=== PATIENT | male | born 1950 | race Caucasian/White ===

== ENCOUNTER 2022-05-27 14:16 | Outpatient (CLI) | payer OTHER, SELFPAY ==
--- NOTE | 2022-05-27 14:29 | USCV_ITS ---
Bill Mcdonald Age: 71 Gender: M : 1950 Exam Date: 05/27/2022 14:36 Ordering Phys: George Sloan DO Technologist: Ethan Bojorquez Exam Location: [facility] Indication: screening HISTORY: Diameter (cm) AP x Transverse x Length Velocity (cm/s) Waveform Prox Aorta: 1.56 x 2.12 x 84.60 Mid Aorta: 1.54 x 1.62 x 97.50 Distal Aorta: 1.35 x 1.53 x 64.50 Right Iliac Prox: 0.84 x 1.31 x 97.90 Left Iliac Prox: 0.89 x 1.06 x 81.80 Stent Prox Landing x x Aneurysmal Sac Max x x Lt Lat Sac Dim Rt Lat Sac Dim Stent Dist Landing x x Right Iliac Stent x x Left Iliac Stent x x Right Renal Art Left Renal Art FINDINGS: CONCLUSIONS No evidence of abdominal aortic or bilateral iliac aneurysm. Jeremy García MD (Electronically Signed) Final Date: 27 May 2022 16:11 S
--- NOTE | 2022-05-27 14:29 | USCV_ITS ---
McdonaldBill del iro Age: 71 Gender: M : 1950 Exam Date: 05/27/2022 14:54 Ordering Phys: George Sloan DO Technologist: Ethan Bojorquez Exam Location: [facility] [place] Indication: Dizziness Risk Factors: Previous Vascular Surgery: Right Brachial BP: / Left Brachial BP: / Right Left Velocity (cm/s) Spectral Plaque Velocity (cm/s) Spectral Plaque Syst/Diast Broadening Syst/Diast Broadening 86.20/ 21.00 Prox CCA 79.50 / 19.10 69.90/ 20.20 Mid CCA 72.30 / 20.40 65.30/ 20.20 Distal CCA 50.80 / 15.30 58.70/ 17.60 Prox ICA 57.20 / 17.70 83.90/ 31.80 Mid ICA 84.10 / 30.90 75.20/ 25.60 Distal ICA 111.10/ 41.00 113.60 ECA 84.10 0.97 ICA/CCA 1.40 Antegrade Vertebral Antegrade 40.60/ 11.70 cm/s 53.90/ 13.90 cm/s Tri Subclavian Tri 119.6 60.90 0 CONCLUSIONS Right ICA stenosis <50%. Mild atheromatous plaque right carotid bulb/ICA. Left ICA stenosis <50%. Mild atheromatous plaque left carotid bulb/ICA. Normal antegrade Doppler flow noted in the left vertebral artery. Normal antegrade Doppler flow noted in the right vertebral artery. Jeremy García MD (Electronically Signed) Final Date: 27 May 2022 16:09 S
== END 2022-05-27 14:17 | disposition home or self-care (01) ==
LOC: RAD 14:17
PROVIDERS: PCP Emergency Medicine Emergency Medical Services; Visit Provider Emergency Medicine Emergency Medical Services
DX: Z13.6 Encounter for screening for cardiovascular disorders (principal); R42 Dizziness and giddiness; I65.23 Occlusion and stenosis of bilateral carotid arteries
CPT/HCPCS: 76706; 93880

== ENCOUNTER 2022-06-01 12:34 | Outpatient (CLI) | payer OTHER, SELFPAY ==
--- NOTE | 2022-06-01 12:42 | MR_ITS ---
WS: [id number] MRI BRAIN WITH AND WITHOUT CONTRAST HISTORY: DIZZINESS WHEN SITTING COMPARISON: None available. TECHNIQUE: Multiplanar imaging performed through the brain with MultiHance 20 ml's IV. No acute infarcts are seen. De La Cruz-white matter differentiation is well preserved. There are a few very minimal scattered T2 and FLAIR signal hyperintensities from small vessel ischemic disease. Very mini mal atrophy. No susceptibility artifacts or prior lacunar infarcts. Ventricles and extra-axial spaces are normal. Clivus and pituitary gland are normal. Visualized posterior fossa and brainstem are also normal. Postcontrast images are negative for masses or vascular malformations. Dural venous sinuses are normal. Paranasal sinuses: Well aerated with no significant disease. Mastoid air cells: Normal. Calvarium and scalp: Normal. MR/MR head wo/w con [id number] IMPRESSION: 1. No acute infarct or mass. 2. Very mild atrophy and small vessel ischemic disease. 3. No vascular malformation or pituitary abnormality. Negative posterior fossa .
[2022-06-01] MEDS: gadobenate dimeglumine 20 mL vial IV (14:00)
== END 2022-06-01 12:35 | disposition home or self-care (01) ==
PROVIDERS: PCP Emergency Medicine Emergency Medical Services; Visit Provider Emergency Medicine Emergency Medical Services
DX: R42 Dizziness and giddiness (principal); G31.9 Degenerative disease of nervous system, unspecified; I67.82 Cerebral ischemia
CPT/HCPCS: 70553

== ENCOUNTER → 2023-06-21 13:42 | Outpatient (BNVA) | payer OTHER, SELFPAY | PROVIDERS: PCP Emergency Medicine Emergency Medical Services; Visit Provider Podiatrist Foot & Ankle Surgery | DX: E11.621 Type 2 diabetes mellitus with foot ulcer (principal); G62.9 Polyneuropathy, unspecified; B35.1 Tinea unguium; L84 Corns and callosities; M20.41 Other hammer toe(s) (acquired), right foot; M20.42 Other hammer toe(s) (acquired), left foot; L97.512 Non-pressure chronic ulcer of other part of right foot with fat layer exposed; L97.529 Non-pressure chronic ulcer of other part of left foot with unspecified severity | CPT/HCPCS: 11042; 11055; 11721; 99204; A6219 ==

== ENCOUNTER 2023-06-21 15:45 | Outpatient (CLI) | payer OTHER, SELFPAY | END 2023-06-21 15:46 | disposition home or self-care (01) | LOC: SPT 15:45 | PROVIDERS: PCP Emergency Medicine Emergency Medical Services; Visit Provider Podiatrist Foot & Ankle Surgery | DX: Z46.89 Encounter for fitting and adjustment of other specified devices (principal); L97.501 Non-pressure chronic ulcer of other part of unspecified foot limited to breakdown of skin | CPT/HCPCS: 97760; L4361 ==

== ENCOUNTER → 2023-06-29 11:13 | Outpatient (BNVA) | payer OTHER, SELFPAY | PROVIDERS: PCP Emergency Medicine Emergency Medical Services; Visit Provider Podiatrist Foot & Ankle Surgery | DX: E11.621 Type 2 diabetes mellitus with foot ulcer; L97.512 Non-pressure chronic ulcer of other part of right foot with fat layer exposed; L97.522 Non-pressure chronic ulcer of other part of left foot with fat layer exposed; G62.9 Polyneuropathy, unspecified; B35.1 Tinea unguium; L84 Corns and callosities; M20.41 Other hammer toe(s) (acquired), right foot; M20.42 Other hammer toe(s) (acquired), left foot | CPT/HCPCS: 99213; A6219 ==

== ENCOUNTER → 2023-07-06 10:51 | Outpatient (BNVA) | payer OTHER, SELFPAY | PROVIDERS: PCP Emergency Medicine Emergency Medical Services; Visit Provider Podiatrist Foot & Ankle Surgery | DX: E11.621 Type 2 diabetes mellitus with foot ulcer (principal); L97.512 Non-pressure chronic ulcer of other part of right foot with fat layer exposed; L97.529 Non-pressure chronic ulcer of other part of left foot with unspecified severity; G62.9 Polyneuropathy, unspecified; B35.1 Tinea unguium; L84 Corns and callosities; M20.41 Other hammer toe(s) (acquired), right foot; M20.42 Other hammer toe(s) (acquired), left foot | CPT/HCPCS: 99213; A6219 ==

== ENCOUNTER → 2023-07-15 13:10 | Outpatient (BNVA) | payer OTHER, SELFPAY | PROVIDERS: PCP Emergency Medicine Emergency Medical Services; Visit Provider Nurse Practitioner Family | DX: I96 Gangrene, not elsewhere classified (principal); L89.892 Pressure ulcer of other site, stage 2 | CPT/HCPCS: 11042; 99213; A6210; A6219 ==

== ENCOUNTER → 2023-07-22 14:27 | Outpatient (BNVA) | payer OTHER, SELFPAY | PROVIDERS: PCP Emergency Medicine Emergency Medical Services; Visit Provider Nurse Practitioner Family | DX: I96 Gangrene, not elsewhere classified (principal); L89.892 Pressure ulcer of other site, stage 2 | CPT/HCPCS: 11042; A6210 ==

== ENCOUNTER → 2023-08-17 14:23 | Outpatient (BNVA) | payer OTHER, SELFPAY | PROVIDERS: PCP Emergency Medicine Emergency Medical Services; Visit Provider Nurse Practitioner Family | DX: I96 Gangrene, not elsewhere classified (principal); L89.892 Pressure ulcer of other site, stage 2 | CPT/HCPCS: 11042; A6210 ==

== ENCOUNTER → 2023-08-24 14:57 | Outpatient (BNVA) | payer OTHER, SELFPAY | PROVIDERS: PCP Emergency Medicine Emergency Medical Services; Visit Provider Nurse Practitioner Family | DX: I96 Gangrene, not elsewhere classified (principal); L89.892 Pressure ulcer of other site, stage 2 | CPT/HCPCS: 11042; A6210 ==

== ENCOUNTER → 2024-05-09 13:28 | Outpatient (BNVA) | payer OTHER, SELFPAY | PROVIDERS: PCP Emergency Medicine Emergency Medical Services; Visit Provider Orthopaedic Surgery | DX: M79.642 Pain in left hand (principal); W10.8XXA Fall (on) (from) other stairs and steps, initial encounter; S62.346A Nondisplaced fracture of base of fifth metacarpal bone, right hand, initial encounter for closed fracture | CPT/HCPCS: 73130; 99203 ==

== ENCOUNTER → 2024-05-16 13:58 | Outpatient (BNVA) | payer OTHER, SELFPAY | PROVIDERS: PCP Emergency Medicine Emergency Medical Services; Visit Provider Thoracic Surgery (Cardiothoracic Vascular Surgery) | DX: E11.52 Type 2 diabetes mellitus with diabetic peripheral angiopathy with gangrene (principal); E11.621 Type 2 diabetes mellitus with foot ulcer; L97.422 Non-pressure chronic ulcer of left heel and midfoot with fat layer exposed; L97.411 Non-pressure chronic ulcer of right heel and midfoot limited to breakdown of skin | CPT/HCPCS: 11042; 97597; 99213 ==

== ENCOUNTER → 2024-05-22 15:30 | Outpatient (BNVA) | payer OTHER, SELFPAY | PROVIDERS: PCP Emergency Medicine Emergency Medical Services; Visit Provider Thoracic Surgery (Cardiothoracic Vascular Surgery) | DX: E11.621 Type 2 diabetes mellitus with foot ulcer (principal); E11.52 Type 2 diabetes mellitus with diabetic peripheral angiopathy with gangrene; L97.421 Non-pressure chronic ulcer of left heel and midfoot limited to breakdown of skin; L97.411 Non-pressure chronic ulcer of right heel and midfoot limited to breakdown of skin | CPT/HCPCS: 87070; 87176; 87205; 97597 ==

== ENCOUNTER → 2024-05-29 10:12 | Outpatient (BNVA) | payer OTHER, SELFPAY | PROVIDERS: PCP Emergency Medicine Emergency Medical Services; Visit Provider Thoracic Surgery (Cardiothoracic Vascular Surgery) | DX: E11.52 Type 2 diabetes mellitus with diabetic peripheral angiopathy with gangrene (principal); E11.621 Type 2 diabetes mellitus with foot ulcer; L97.422 Non-pressure chronic ulcer of left heel and midfoot with fat layer exposed; L97.411 Non-pressure chronic ulcer of right heel and midfoot limited to breakdown of skin; E11.622 Type 2 diabetes mellitus with other skin ulcer; L97.821 Non-pressure chronic ulcer of other part of left lower leg limited to breakdown of skin | CPT/HCPCS: 11042; 11045; A6220 ==

== ENCOUNTER → 2024-06-05 12:56 | Outpatient (BNVA) | payer OTHER, SELFPAY | PROVIDERS: PCP Emergency Medicine Emergency Medical Services; Visit Provider Thoracic Surgery (Cardiothoracic Vascular Surgery) | DX: E11.52 Type 2 diabetes mellitus with diabetic peripheral angiopathy with gangrene (principal); E11.621 Type 2 diabetes mellitus with foot ulcer; L97.422 Non-pressure chronic ulcer of left heel and midfoot with fat layer exposed; L97.321 Non-pressure chronic ulcer of left ankle limited to breakdown of skin; Z09 Encounter for follow-up examination after completed treatment for conditions other than malignant neoplasm | CPT/HCPCS: 87070; 87077; 87186; 97597; 97598; A6237; A6248; A6250 ==

== ENCOUNTER → 2024-06-08 13:05 | Outpatient (BNVA) | payer OTHER, SELFPAY | PROVIDERS: PCP Emergency Medicine Emergency Medical Services; Visit Provider Thoracic Surgery (Cardiothoracic Vascular Surgery) | DX: E11.621 Type 2 diabetes mellitus with foot ulcer (principal); L97.522 Non-pressure chronic ulcer of other part of left foot with fat layer exposed | CPT/HCPCS: 97605 ==

== ENCOUNTER → 2024-06-13 13:00 | Outpatient (BNVA) | payer OTHER, SELFPAY | PROVIDERS: PCP Emergency Medicine Emergency Medical Services; Visit Provider Thoracic Surgery (Cardiothoracic Vascular Surgery) | DX: E11.52 Type 2 diabetes mellitus with diabetic peripheral angiopathy with gangrene (principal); E11.621 Type 2 diabetes mellitus with foot ulcer; L97.422 Non-pressure chronic ulcer of left heel and midfoot with fat layer exposed; L97.321 Non-pressure chronic ulcer of left ankle limited to breakdown of skin; L89.312 Pressure ulcer of right buttock, stage 2 | CPT/HCPCS: 97597; 97598; 97605; A6237; A6248; A6250 ==

== ENCOUNTER → 2024-06-20 13:05 | Outpatient (BNVA) | payer OTHER, SELFPAY | PROVIDERS: PCP Emergency Medicine Emergency Medical Services; Visit Provider Thoracic Surgery (Cardiothoracic Vascular Surgery) | DX: E11.52 Type 2 diabetes mellitus with diabetic peripheral angiopathy with gangrene (principal); E11.621 Type 2 diabetes mellitus with foot ulcer; L89.312 Pressure ulcer of right buttock, stage 2; L97.421 Non-pressure chronic ulcer of left heel and midfoot limited to breakdown of skin; L97.321 Non-pressure chronic ulcer of left ankle limited to breakdown of skin | CPT/HCPCS: 97597; 97598; 97605; A6237; A6248; A6250 ==

== ENCOUNTER → 2024-06-27 13:40 | Outpatient (BNVA) | payer OTHER, SELFPAY | PROVIDERS: PCP Emergency Medicine Emergency Medical Services; Visit Provider Thoracic Surgery (Cardiothoracic Vascular Surgery) | DX: E11.52 Type 2 diabetes mellitus with diabetic peripheral angiopathy with gangrene (principal); E11.621 Type 2 diabetes mellitus with foot ulcer; L97.421 Non-pressure chronic ulcer of left heel and midfoot limited to breakdown of skin; E11.622 Type 2 diabetes mellitus with other skin ulcer; L97.321 Non-pressure chronic ulcer of left ankle limited to breakdown of skin; L89.312 Pressure ulcer of right buttock, stage 2 | CPT/HCPCS: 97597; 97598; A6252 ==

== ENCOUNTER → 2024-07-04 13:45 | Outpatient (BNVA) | payer OTHER, SELFPAY | PROVIDERS: PCP Emergency Medicine Emergency Medical Services; Visit Provider Thoracic Surgery (Cardiothoracic Vascular Surgery) | DX: E11.52 Type 2 diabetes mellitus with diabetic peripheral angiopathy with gangrene (principal); E11.621 Type 2 diabetes mellitus with foot ulcer; L97.421 Non-pressure chronic ulcer of left heel and midfoot limited to breakdown of skin; E11.622 Type 2 diabetes mellitus with other skin ulcer; L97.321 Non-pressure chronic ulcer of left ankle limited to breakdown of skin; L89.312 Pressure ulcer of right buttock, stage 2 | CPT/HCPCS: 11042; 11045; 97597; 97605; A6237; A6250 ==

== ENCOUNTER → 2024-07-11 13:45 | Outpatient (BNVA) | payer OTHER, SELFPAY | PROVIDERS: PCP Emergency Medicine Emergency Medical Services; Visit Provider Thoracic Surgery (Cardiothoracic Vascular Surgery) | DX: E11.52 Type 2 diabetes mellitus with diabetic peripheral angiopathy with gangrene (principal); E11.621 Type 2 diabetes mellitus with foot ulcer; L97.421 Non-pressure chronic ulcer of left heel and midfoot limited to breakdown of skin; E11.622 Type 2 diabetes mellitus with other skin ulcer; L97.321 Non-pressure chronic ulcer of left ankle limited to breakdown of skin; Z09 Encounter for follow-up examination after completed treatment for conditions other than malignant neoplasm | CPT/HCPCS: 97597; 97598; 97605; A6237; A6248; A6250 ==

== ENCOUNTER → 2024-07-18 14:54 | Outpatient (BNVA) | payer OTHER, SELFPAY | PROVIDERS: PCP Emergency Medicine Emergency Medical Services; Visit Provider Thoracic Surgery (Cardiothoracic Vascular Surgery) | DX: E11.52 Type 2 diabetes mellitus with diabetic peripheral angiopathy with gangrene (principal); E11.621 Type 2 diabetes mellitus with foot ulcer; L97.421 Non-pressure chronic ulcer of left heel and midfoot limited to breakdown of skin; L97.321 Non-pressure chronic ulcer of left ankle limited to breakdown of skin | CPT/HCPCS: 87070; 87176; 87205; 97597; 97598; 97605; A6237; A6248; A6250 ==

== ENCOUNTER → 2024-07-25 14:01 | Outpatient (BNVA) | payer OTHER, SELFPAY | PROVIDERS: PCP Emergency Medicine Emergency Medical Services; Visit Provider Thoracic Surgery (Cardiothoracic Vascular Surgery) | DX: E11.52 Type 2 diabetes mellitus with diabetic peripheral angiopathy with gangrene (principal); E11.621 Type 2 diabetes mellitus with foot ulcer; L97.421 Non-pressure chronic ulcer of left heel and midfoot limited to breakdown of skin; E11.622 Type 2 diabetes mellitus with other skin ulcer; L97.321 Non-pressure chronic ulcer of left ankle limited to breakdown of skin | CPT/HCPCS: 97597; 97598; 97605; A6237; A6250 ==

== ENCOUNTER → 2024-08-01 14:50 | Outpatient (BNVA) | payer OTHER, SELFPAY | PROVIDERS: PCP Emergency Medicine Emergency Medical Services; Visit Provider Thoracic Surgery (Cardiothoracic Vascular Surgery) | DX: E11.52 Type 2 diabetes mellitus with diabetic peripheral angiopathy with gangrene (principal); E11.621 Type 2 diabetes mellitus with foot ulcer; L97.421 Non-pressure chronic ulcer of left heel and midfoot limited to breakdown of skin; E11.622 Type 2 diabetes mellitus with other skin ulcer; L97.321 Non-pressure chronic ulcer of left ankle limited to breakdown of skin | CPT/HCPCS: 97597; 97605; A6237; A6250 ==

== ENCOUNTER 2024-08-08 15:18 | Outpatient (CLI) | payer OTHER, SELFPAY ==
--- NOTE | 2024-08-08 15:20 | XRR_ITS ---
PROCEDURE INFORMATION: Exam: XR Left Foot Exam date and time: 08/08/2024 3:29 PM Age: 74 years old Clinical indication: Condition or disease; Other: Non healing wound; Additional info: Non healing wound, R/O osteo TECHNIQUE: Imaging protocol: Radiologic exam of the left foot. Views: 3 or more views. COMPARISON: No relevant prior studies available. FINDINGS: Bones/joints: Normal. Soft tissues: Normal. XR/XR foot LT min 3V* [id number] IMPRESSION: No acute findings.
== END 2024-08-08 15:19 | disposition home or self-care (01) ==
LOC: RAD 15:19
PROVIDERS: PCP Nurse Practitioner Family; Visit Provider Thoracic Surgery (Cardiothoracic Vascular Surgery)
DX: E11.621 Type 2 diabetes mellitus with foot ulcer (principal); L97.509 Non-pressure chronic ulcer of other part of unspecified foot with unspecified severity
CPT/HCPCS: 73630; 97597; 97605; A6237; A6250

== ENCOUNTER → 2024-08-15 13:43 | Outpatient (BNVA) | payer OTHER, SELFPAY | PROVIDERS: PCP Nurse Practitioner Family; Visit Provider Thoracic Surgery (Cardiothoracic Vascular Surgery) | DX: E11.52 Type 2 diabetes mellitus with diabetic peripheral angiopathy with gangrene (principal); E11.621 Type 2 diabetes mellitus with foot ulcer; L97.422 Non-pressure chronic ulcer of left heel and midfoot with fat layer exposed; E11.622 Type 2 diabetes mellitus with other skin ulcer; L97.322 Non-pressure chronic ulcer of left ankle with fat layer exposed | CPT/HCPCS: 97597; 97605; A6237; A6250 ==

== ENCOUNTER → 2024-08-17 15:12 | Outpatient (BNVA) | payer OTHER, SELFPAY | PROVIDERS: PCP Nurse Practitioner Family; Visit Provider Podiatrist Foot & Ankle Surgery | DX: E11.621 Type 2 diabetes mellitus with foot ulcer (principal); G62.9 Polyneuropathy, unspecified; B35.1 Tinea unguium; L84 Corns and callosities; M20.41 Other hammer toe(s) (acquired), right foot; M20.42 Other hammer toe(s) (acquired), left foot; L97.512 Non-pressure chronic ulcer of other part of right foot with fat layer exposed | CPT/HCPCS: 11721; 99213 ==

== ENCOUNTER → 2024-08-23 13:45 | Outpatient (BNVA) | payer OTHER, SELFPAY | PROVIDERS: PCP Nurse Practitioner Family; Visit Provider Thoracic Surgery (Cardiothoracic Vascular Surgery) | DX: E11.52 Type 2 diabetes mellitus with diabetic peripheral angiopathy with gangrene (principal); E11.621 Type 2 diabetes mellitus with foot ulcer; L97.422 Non-pressure chronic ulcer of left heel and midfoot with fat layer exposed; E11.622 Type 2 diabetes mellitus with other skin ulcer; L97.322 Non-pressure chronic ulcer of left ankle with fat layer exposed | CPT/HCPCS: 11055; 97597; 97605; A6237; A6250 ==

== ENCOUNTER 2024-08-29 14:18 | Outpatient (CLI) | payer OTHER, SELFPAY ==
[2024-08-29 14:55] LABS: Basophils # 0.1 10^3/uL (0.0-0.1); Basophils % 0.9 %; Eosinophils # 0.2 10^3/uL (0.0-0.8); Eosinophils % 2.4 %; Hematocrit 38.7 % (37-53); Lymphocytes # 2.1 10^3/uL (0.8-4.8); Lymphocytes % 23.7 %; Mean Corpuscular HGB Conc 32.6 g/dL (30-55); Mean Corpuscular Hemoglobin 28.3 pg (27-33); Mean Corpuscular Volume 86.8 fl (82-101); Monocytes # 0.6 10^3/uL (0.2-0.9); Monocytes % 6.6 %; Neutrophils # 5.82 10^3/uL (1.8-7.7); Neutrophils % 65.9 %; Nucleated Red Blood Cells % 0 %; Platelet Count 328 10^3/cmm (157-399); Red Blood Count 4.46 10^6/uL (3.85-5.65); Red Cell Distribution Width 13.8 % (12.1-15.1); White Blood Count 8.82 10^3/uL (3.29-11.43)
[2024-08-29 15:11] LABS: Anion Gap 12.3 (5-19); Blood Urea Nitrogen 7 mg/dL (8-23); C Reactive Protein 7.2 mg/L (0.0-4.9); Calcium 9.7 mg/dL (8.5-10.5); Carbon Dioxide 27 mmol/L (22-29); Chloride 102 mmol/L (98-107); Glucose 118 mg/dL (65-115); Osmolality Calculated 283 mOsm/kg (285-295); Potassium 4.3 mmol/L (3.5-5.1); Sodium 137 mmol/L (136-145)
== END 2024-08-29 14:19 | disposition home or self-care (01) ==
LOC: LAB 14:19
PROVIDERS: PCP Nurse Practitioner Family; Visit Provider Thoracic Surgery (Cardiothoracic Vascular Surgery)
DX: E08.621 Diabetes mellitus due to underlying condition with foot ulcer (principal); L97.529 Non-pressure chronic ulcer of other part of left foot with unspecified severity; E11.52 Type 2 diabetes mellitus with diabetic peripheral angiopathy with gangrene; E11.621 Type 2 diabetes mellitus with foot ulcer; L97.422 Non-pressure chronic ulcer of left heel and midfoot with fat layer exposed; E11.622 Type 2 diabetes mellitus with other skin ulcer; L97.322 Non-pressure chronic ulcer of left ankle with fat layer exposed
CPT/HCPCS: 36415; 80048; 85025; 86140; 97597

== ENCOUNTER → 2024-09-05 13:38 | Outpatient (BNVA) | payer OTHER, SELFPAY | PROVIDERS: PCP Nurse Practitioner Family; Visit Provider Thoracic Surgery (Cardiothoracic Vascular Surgery) | DX: E11.52 Type 2 diabetes mellitus with diabetic peripheral angiopathy with gangrene (principal); E11.621 Type 2 diabetes mellitus with foot ulcer; L97.421 Non-pressure chronic ulcer of left heel and midfoot limited to breakdown of skin; E11.622 Type 2 diabetes mellitus with other skin ulcer; L97.321 Non-pressure chronic ulcer of left ankle limited to breakdown of skin | CPT/HCPCS: 11042; 97597; A6197; A6212 ==

== ENCOUNTER → 2024-09-12 14:35 | Outpatient (BNVA) | payer OTHER, SELFPAY | PROVIDERS: PCP Nurse Practitioner Family; Visit Provider Thoracic Surgery (Cardiothoracic Vascular Surgery) | DX: E11.52 Type 2 diabetes mellitus with diabetic peripheral angiopathy with gangrene (principal); E11.621 Type 2 diabetes mellitus with foot ulcer; L97.421 Non-pressure chronic ulcer of left heel and midfoot limited to breakdown of skin; E11.622 Type 2 diabetes mellitus with other skin ulcer; L97.322 Non-pressure chronic ulcer of left ankle with fat layer exposed | CPT/HCPCS: 11042; 97597; A6197 ==

== ENCOUNTER 2024-09-14 14:37 | Outpatient (CLI) | payer OTHER, SELFPAY ==
--- NOTE | 2024-09-14 15:15 | MR_ITS ---
WS: [id number] MRI LEFT ANKLE WITH AND WITHOUT CONTRAST. COMPARISON: LEFT foot radiograph 08/08/2024 Multiplanar, multisequence imaging is performed with and without contrast. MultiHance 16 mL. History: Diabetic LEFT ulcer. Ulcer is marked along the medial hindfoot. Superficial soft tissue ulcer along the medial hindfoot at the level of the mid calcaneus. Very super ficial ulcer measuring 1.6 x 0.5 cm. No tract extending to the calcaneus is identified. There is very mild enhancement in the bed of the decubitus ulcer. There is extensive soft tissue edema throughout the entire ankle but not focal to the decubitus ulcer . No tract or abscess identified. There is a small amount of marrow edema in the talar neck and also in the subtalar calcaneus. No defi nite enhancement on the postcontrast imaging. Additional decubitus ulcer lateral to the distal fibula measures 1.8 x 1.3 cm. This tract does extend to the distal fibula and there is a very small amount of edema in the distal fibula which does enhan ce. There is fluid along the ulcer tract. The Achilles tendon is normal. Small amount of fluid in the peroneal tendon sheath. There is a chroni c appearing split tear of the peroneus brevis. Flexor hallucis longus, flexor digitorum longus and th e posterior tibial tendon is visualized are normal. The extensor tendons are not well visualized due to motion. There is enhancement of the tendon sheaths greatest involving the peroneal tendon sheath. Loculated fluid collection in the tendon sheath of the flexor hallucis longus with peripheral enhance ment. Small joint effusion involving the anterior and posterior recesses. Mild narrowing of the tibio talar joint space. Fluid with a gap along the anterior talofibular ligament. The ligaments are very d ifficult to accurately described with this amount of motion. MR/MR ankle LT wo/w con [id number] IMPRESSION: 1. Superficial decubitus ulcer along the medial hindfoot at the level of the m id calcaneus. Ulcer measures 1.6 x 0.5 cm. There is no tract or abscess extendi ng to the calcaneus. No osteomyelitis identified. 2. Additional decubitus ulcer lateral to the distal fibula does extend to the distal fibular tip with enhancement. Mild osteomyelitis involving the distal fi bula. 3. Diffuse edema and enhancement consistent with cellulitis surrounding the an kle. 4. Small amount of marrow edema in the neck of the talus and subtalar calcaneu s. Edema does not enhance. 5. 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 6. Tenosynovitis involving the flexor tendon sheaths and greatest involving th e peroneal tendon sheath. Additional fluid collection with peripheral enhanceme nt in the tendon sheath of the flexor hallucis longus. 7. Mildly complex joint effusion with peripheral enhancement. 8. Chronic tear of the anterior talofibular ligament.
[2024-09-14] MEDS: gadobenate dimeglumine 20 mL vial IV (15:46)
== END 2024-09-14 14:38 | disposition home or self-care (01) ==
LOC: RAD 14:38
PROVIDERS: PCP Nurse Practitioner Family; Visit Provider Thoracic Surgery (Cardiothoracic Vascular Surgery)
DX: E08.621 Diabetes mellitus due to underlying condition with foot ulcer (principal); L97.529 Non-pressure chronic ulcer of other part of left foot with unspecified severity; M25.472 Effusion, left ankle; S86.312A Strain of muscle(s) and tendon(s) of peroneal muscle group at lower leg level, left leg, initial encounter; M65.872 Other synovitis and tenosynovitis, left ankle and foot; S93.492A Sprain of other ligament of left ankle, initial encounter; X58.XXXA Exposure to other specified factors, initial encounter
CPT/HCPCS: 73723

== ENCOUNTER → 2024-09-26 14:05 | Outpatient (BNVA) | payer OTHER, SELFPAY | PROVIDERS: PCP Nurse Practitioner Family; Visit Provider Thoracic Surgery (Cardiothoracic Vascular Surgery) | DX: E11.52 Type 2 diabetes mellitus with diabetic peripheral angiopathy with gangrene (principal); E11.621 Type 2 diabetes mellitus with foot ulcer; L97.421 Non-pressure chronic ulcer of left heel and midfoot limited to breakdown of skin; E11.622 Type 2 diabetes mellitus with other skin ulcer; L97.322 Non-pressure chronic ulcer of left ankle with fat layer exposed | CPT/HCPCS: 11042; 87070; 87176; 87205; 97597; A6197 ==

== ENCOUNTER → 2024-10-02 14:22 | Outpatient (BNVA) | payer OTHER, SELFPAY | PROVIDERS: PCP Nurse Practitioner Family; Visit Provider Thoracic Surgery (Cardiothoracic Vascular Surgery) | DX: E11.52 Type 2 diabetes mellitus with diabetic peripheral angiopathy with gangrene (principal); E11.621 Type 2 diabetes mellitus with foot ulcer; L97.421 Non-pressure chronic ulcer of left heel and midfoot limited to breakdown of skin; E11.622 Type 2 diabetes mellitus with other skin ulcer; L97.322 Non-pressure chronic ulcer of left ankle with fat layer exposed | CPT/HCPCS: 11042; 97597 ==

== ENCOUNTER → 2024-10-10 14:10 | Outpatient (BNVA) | payer OTHER, SELFPAY | PROVIDERS: PCP Nurse Practitioner Family; Visit Provider Thoracic Surgery (Cardiothoracic Vascular Surgery) | DX: E11.52 Type 2 diabetes mellitus with diabetic peripheral angiopathy with gangrene (principal); E11.621 Type 2 diabetes mellitus with foot ulcer; L97.421 Non-pressure chronic ulcer of left heel and midfoot limited to breakdown of skin; E11.622 Type 2 diabetes mellitus with other skin ulcer; L97.322 Non-pressure chronic ulcer of left ankle with fat layer exposed | CPT/HCPCS: 11042; 97597; A6210; A6251 ==

== ENCOUNTER → 2024-10-12 11:51 | Day surgery (SDC) | payer OTHER, SELFPAY ==
--- NOTE | 2024-10-12 11:58 | XR_ITS ---
WS: [id number] PORTABLE CHEST HISTORY: Post PICC insertion COMPARISON: None available. Right-sided PICC line has been inserted in good position. Tip terminates at the caval atrial junction . Mild interstitial thickening throughout both lungs. No dense consolidation or pneumonia. No pleural e ffusion or pneumothorax. Cardiac size: Normal. Mediastinum/Aorta: Mild atherosclerosis aorta. Osteopenia. Prior RIGHT rotator cuff repair. Healed fractures in the posterior LEFT upper thorax. XR/XR chest 1V portable [id number] IMPRESSION: Satisfactory position RIGHT PICC line.
[2024-10-12 12:00] VITALS: BP 122/72; PULSE 85; RESP 16; TEMP 36.2; O2SAT 96
[2024-10-12] MEDS: cefTRIAXone 1,000 mg SDV 1000 MG IVP (13:04)
[2024-10-12 13:08] LABS: Basophils # 0.1 10^3/uL (0.0-0.1); Basophils % 0.6 %; Eosinophils # 0.2 10^3/uL (0.0-0.8); Eosinophils % 2.7 %; Hematocrit 33.8 % (37-53); Lymphocytes # 1.5 10^3/uL (0.8-4.8); Lymphocytes % 18.9 %; Mean Corpuscular Hemoglobin 27.4 pg (27-33); Mean Corpuscular Volume 85.8 fl (82-101); Mean Platelet Volume 8.7 fL (7.4-10.4); Monocytes # 0.4 10^3/uL (0.2-0.9); Monocytes % 5.5 %; Neutrophils % 71.9 %; Nucleated Red Blood Cells % 0 %; Platelet Count 423 10^3/cmm (157-399); Red Blood Count 3.94 10^6/uL (3.85-5.65); Red Cell Distribution Width 13.9 % (12.1-15.1); White Blood Count 7.79 10^3/uL (3.29-11.43)
[2024-10-12 13:24] LABS: Blood Urea Nitrogen 6 mg/dL (8-23); Calcium 9.4 mg/dL (8.5-10.5); Carbon Dioxide 26 mmol/L (22-29); Chloride 105 mmol/L (98-107); Creatinine Clr Calc Pharmacy 92.0127; Glucose 57 mg/dL (65-115); Osmolality Calculated 283 mOsm/kg (285-295); Sodium 139 mmol/L (136-145)
[2024-10-12 13:26] LABS: Anion Gap 12.4 (5-19); Potassium 4.4 mmol/L (3.5-5.1)
--- NOTE | 2024-10-12 13:37 | PICC.NOTE ---
Single lumen PICC placed to right basilic vein. Referred to vascular access nurse for PICC placement due to need for IV antibiotics x 6 weeks. Risks and benefits discussed and informed consent obtained from pt. Right arm assessed with right basilic vein measuring 4.0 mm, straight, and apparent best choice for placement. Using sterile technique and MST, right basilic vein accessed x 1 stick. Mid-arm circumference measured 10 cm from right AC 27 cm. Trimmed cath 44 cm with 0 cm external length noted. CXR shows tip in cavoatrial junction, in good position for use per radiologist. Line secured with stat-lock. Insertion site covered with Biopatch and TSM. First dose of Ceftriaxone 1 gm IVP given without difficulty. No reaction noted. Labs drawn as ordered. Pt to return tomorrow at 11:30 to [facility] for infusion. Pt placed on OPS infusion schedule Sat and Wednesday at 11:30. Pt verbalized understanding of appointment times and where to go.
== END ==
PROVIDERS: PCP Nurse Practitioner Family; Visit Provider Thoracic Surgery (Cardiothoracic Vascular Surgery)
DX: Z45.2 Encounter for adjustment and management of vascular access device (principal)
CPT/HCPCS: 36573; 36592; 71045; 80048; 85025; 86141; 96374; J0696

== ENCOUNTER 2024-10-28 11:25 | Oncology outpatient (recurring) (ONCR) | payer OTHER, SELFPAY | END 2024-11-02 11:30 | disposition home or self-care (01) | LOC: OPS 11:27 → ONCMED 10-30 09:22 | PROVIDERS: PCP Nurse Practitioner Family; Visit Provider Thoracic Surgery (Cardiothoracic Vascular Surgery) | DX: Z53.9 Procedure and treatment not carried out, unspecified reason (principal) ==

== ENCOUNTER 2024-11-06 12:00 | Oncology outpatient (recurring) (ONCR) | payer OTHER, SELFPAY ==
[2024-10-13] MEDS: cefTRIAXone 1,000 mg SDV 1000 MG IVP (11:57)
[2024-10-13 12:39] VITALS: BP 136/77; PULSE 81; RESP 17; TEMP 36; O2SAT 96
[2024-10-14 11:31] VITALS: BP 141/76; PULSE 92; RESP 16; TEMP 36.1; O2SAT 98
[2024-10-14] MEDS: cefTRIAXone 1,000 mg SDV 1000 MG IVP (11:48)
[2024-10-16] MEDS: cefTRIAXone 1,000 mg SDV 1000 MG IVP (11:53)
[2024-10-16 12:14] VITALS: BP 124/77; PULSE 88; RESP 17; TEMP 36.3; O2SAT 96
[2024-10-18] MEDS: cefTRIAXone 1,000 mg SDV 1000 MG IVP (11:53)
[2024-10-18 12:07] VITALS: BP 123/77; PULSE 87; RESP 18; TEMP 36.1; O2SAT 97
[2024-10-19] MEDS: cefTRIAXone 1,000 mg SDV 1000 MG IVP (12:29)
[2024-10-19 13:14] VITALS: BP 154/74; PULSE 88; RESP 17; TEMP 36.3; O2SAT 99
[2024-10-22 11:41] VITALS: BP 113/74; PULSE 97; RESP 18; TEMP 36.3; O2SAT 99
[2024-10-22] MEDS: cefTRIAXone 1,000 mg SDV 1000 MG IVP (11:52)
--- NOTE | 2024-10-22 12:16 | PC.NURSE ---
PICC LINE DRESSING DRY AND INTACT.NO REDNESS OR SWELLING NOTED. FLUSHED WITH SALINE FLUSH AND GOOD BLOOD RETURN NOTED. IV MEDICATION GIVEN OVER 5 MINUTES. FLUSHED WITH 20mL OF SALINE FLUSHED AND NEW ORANGE END CAP APPLIED. PATIENT TOLERATED PROCEDURE WELL.
--- NOTE | 2024-10-22 12:23 | PC.NURSE ---
11:45 PICC DRESSING DRY AND INTACT,NO REDNESS OR SWELLING .FLUSHED WITH SALINE. IV MEDICATION GIVEN OVER 5 MINUTES, AND PICC LINE FLUSHED WITH 20mL OF SALINE FLUSH.NEW ORANGE CAP APPLIED. PATIENT TOLERATED PROCEDURE WELL.
[2024-10-23] MEDS: cefTRIAXone 1,000 mg SDV 1000 MG IVP ×3 (12:24→12:31)
[2024-10-23 12:36] VITALS: BP 125/74; PULSE 65; RESP 16; TEMP 36.9; O2SAT 91
[2024-10-25] MEDS: cefTRIAXone 1,000 mg SDV 1000 MG IVP (12:31)
[2024-10-25 12:44] VITALS: BP 131/75; PULSE 74; RESP 16; TEMP 36.9; O2SAT 94
[2024-10-26] MEDS: cefTRIAXone 1,000 mg SDV 1000 MG IVP (12:09)
[2024-10-26 12:19] VITALS: BP 130/70; PULSE 91; TEMP 36.8
[2024-10-27] MEDS: cefTRIAXone 1,000 mg SDV 1000 MG IVP (11:33)
[2024-10-27 11:46] VITALS: BP 130/72; PULSE 88; RESP 16; TEMP 36.3; O2SAT 95
[2024-10-28] MEDS: cefTRIAXone 1,000 mg SDV 1000 MG IVP (11:31)
[2024-10-28 11:40] VITALS: BP 134/71; PULSE 90; RESP 18; TEMP 36.2; O2SAT 98
--- NOTE | 2024-10-29 12:09 | SUR.PREOP ---
1205 called phone number listed on chart and left message,appt for [phone],called ER and pt hasn't checked in ER,called and talked to supervisor steffen house Georgina and notified her of this pt
[2024-11-01 11:34] VITALS: BP 136/79; PULSE 98; RESP 17; TEMP 36.6; O2SAT 97
[2024-11-01] MEDS: cefTRIAXone 1,000 mg SDV 1000 MG IVP (11:41)
[2024-11-02] MEDS: cefTRIAXone 1,000 mg SDV 1000 MG IVP (12:27)
[2024-11-02 12:49] VITALS: BP 121/67; PULSE 90; RESP 18; TEMP 36.9; O2SAT 96
--- NOTE | 2024-11-04 11:57 | SUR.PREOP ---
Patient no show for 11/04 IVP. Called patients s/o # and no answer.
--- NOTE | 2024-11-06 10:47 | PICC.NOTE ---
Pt noted to have only made it to 13 of 27 infusion appointments for the month of October. Pt was a no call no show for antibiotic this Wednesday and Wednesday. Dr. Laguerre's nurse at wound care notified.
[2024-11-06] MEDS: cefTRIAXone 1,000 mg SDV 1000 MG IVP (13:21)
--- NOTE | 2024-11-06 13:36 | PC.NURSE ---
Removed pts PICC line from right upper arm. Pt tolerated well. 44cm of line removed, intact. No redness or irritation noted. Pressure held to site, secured with pressure dressing. Educated pt to leave dressing on for 24 hours.
[2024-11-06 13:37] VITALS: BP 132/70; PULSE 83
== END 2024-11-10 23:59 | disposition home or self-care (01) ==
PROVIDERS: PCP Nurse Practitioner Family; Visit Provider Thoracic Surgery (Cardiothoracic Vascular Surgery)
DX: Z53.9 Procedure and treatment not carried out, unspecified reason (principal); M86.162 Other acute osteomyelitis, left tibia and fibula; E11.622 Type 2 diabetes mellitus with other skin ulcer; Z79.2 Long term (current) use of antibiotics
CPT/HCPCS: 11042; 11055; 11721; 96365; 96374; 97597; A6210; A6212; J0696

== ENCOUNTER → 2024-11-08 13:31 | Outpatient (BNVA) | payer OTHER, SELFPAY | PROVIDERS: PCP Nurse Practitioner Family; Visit Provider Thoracic Surgery (Cardiothoracic Vascular Surgery) | DX: E11.52 Type 2 diabetes mellitus with diabetic peripheral angiopathy with gangrene (principal); E11.621 Type 2 diabetes mellitus with foot ulcer; L97.421 Non-pressure chronic ulcer of left heel and midfoot limited to breakdown of skin; E11.622 Type 2 diabetes mellitus with other skin ulcer; L97.322 Non-pressure chronic ulcer of left ankle with fat layer exposed | CPT/HCPCS: 11042; 97597; A6212 ==

== ENCOUNTER 2024-11-10 14:28 | Emergency (ER) | payer OTHER, MEDICARE, SELFPAY ==
[2024-11-10 14:31] VITALS: BP 130/76; PULSE 101; RESP 16; TEMP 36.7; O2SAT 97; BMI 30.8
--- NOTE | 2024-11-10 14:47 | XRR_ITS ---
PROCEDURE INFORMATION: Exam: XR Sacrum and Coccyx, 2 or More Views Exam date and time: 11/10/2024 3:05 PM Age: 74 years old Clinical indication: Injury or trauma; Fall; Blunt trauma (contusions or hematomas) TECHNIQUE: Imaging protocol: XR of the sacrum and coccyx, 2 or more views. COMPARISON: CR XR lumbar spine 2-3V* [id number] 11/10/2024 3:05 PM FINDINGS: Bones/joints: Questionable coccygeal fracture. Soft tissues: Normal. XR/XR coccyx 2V [id number] IMPRESSION: Questionable coccygeal fracture.
--- NOTE | 2024-11-10 14:47 | XRR_ITS ---
PROCEDURE INFORMATION: Exam: XR Right Hip Exam date and time: 11/10/2024 3:05 PM Age: 74 years old Clinical indication: Injury or trauma; Fall; Blunt trauma (contusions or hematomas); Right; Hip TECHNIQUE: Imaging protocol: Radiologic exam of the right hip. Views: 1 view hip with pelvis when performed. COMPARISON: CR XR coccyx 2V [id number] 11/10/2024 3:05 PM FINDINGS: Bones/joints: Unremarkable. No acute fracture. Soft tissues: Unremarkable. XR/XR hip RT 2-3V wo/w pel* [id number] IMPRESSION: No acute findings.
--- NOTE | 2024-11-10 14:47 | XRR_ITS ---
PROCEDURE INFORMATION: Exam: XR Lumbosacral Spine Exam date and time: 11/10/2024 3:05 PM Age: 74 years old Clinical indication: Injury or trauma; Fall; Blunt trauma (contusions or hematomas) TECHNIQUE: Imaging protocol: Radiologic exam of the lumbosacral spine. Views: 2 or 3 views. COMPARISON: CR XR coccyx 2V [id number] 11/10/2024 3:05 PM FINDINGS: Bones/joints: No acute fracture. Normal alignment. Soft tissues: Unremarkable. Vasculature: IVC filter noted. XR/XR lumbar spine 2-3V* [id number] IMPRESSION: No acute findings.
--- NOTE | 2024-11-10 14:49 | W.ED.FALL ---
HPI - Fall General: Chief Complaint: Fall Stated Complaint: fall Time Seen by Provider: 11/10/24 14:46 Source: patient Mode of arrival: ambulatory Limitations: no limitations History of Present Illness: 74-year-old male who states that he had got tangled up in his dogs last night fell back into a pallet. He states he landed on his right hip states been having some low back pain coccyx pain and right hip pain since then. He states he is able ambulate but is painful to ambulate denies any head denies other injuries rates his pain a 10 out of 10 currently. Associated symptoms-after fall: Denies abdominal pain, chest pain, headache(s) or neck pain Related Data Home Medications Medication Instructions Recorded Confirmed ceftriaxone 1 gram intravenous 1 g IV DAILY 10/12/24 11/10/24 solution insulin aspart U-100 100 unit/mL 38 unit SUBCUT TID 11/10/24 11/10/24 (3 mL) subcutaneous pen insulin glargine 100 unit/mL (3 67 unit SUBCUT DAILY 11/10/24 11/10/24 mL) subcutaneous pen meloxicam 7.5 mg tablet 7.5 mg PO DAILY 11/10/24 11/10/24 omega-3 fatty acids 500 mg capsule 500 mg PO BID 11/10/24 11/10/24 omeprazole 40 mg capsule,delayed 40 mg PO DAILY 11/10/24 11/10/24 release quetiapine 200 mg tablet 200 mg PO DAILY 11/10/24 11/10/24 rosuvastatin 10 mg tablet 10 mg PO QPM 11/10/24 11/10/24 Previous Rx's Medication Instructions Recorded hydrocodone 5 mg-acetaminophen 325 1 tab PO Q6H PRN pain #14 tabs 11/10/24 mg tablet Allergies Allergy/AdvReac Type Severity Reaction Status Date / Time No Known Allergies Allergy Verified 10/18/24 15:43 Review of Systems Const: Denies: fever(s), chills, body aches or change in appetite Eyes: Denies: blurry vision or eye discomfort ENMT: Denies: throat pain or dental pain Card: Denies: chest pain Resp: Denies: dyspnea GI: Denies: abdominal pain, nausea, vomiting or diarrhea Musc: Reports: back pain and extremity pain; Denies: neck pain Skin/Breast: Denies: rash Neuro: Denies: headache(s) PFSH ED PFSH: Medical History No pertinent past medical history Surgical History No pertinent past surgical history Social History Smoking and tobacco/nicotine status: unknown if used tobacco/nicotine Physical Exam Const: COMMON NORMALS: no acute distress, patient oriented x3 and healthy appearing HENMT: COMMON NORMALS: normocephalic and atraumatic HEAD & SCALP: normocephalic and atraumatic Eye: COMMON NORMALS: conjunctivae normal CONJUNCTIVA: Yes conjunctivae normal Neck/C-Spine: COMMON NORMALS: full ROM and supple Chest: COMMONS NORMALS: normal inspection of the chest Resp: COMMON NORMALS: normal respiratory effort, No retractions, No use of accessory muscles and clear to auscultation bilaterally AUSCULTATION: clear to auscultation bilaterally Cardio: COMMON NORMALS: regular rate, regular rhythm and No murmurs present (Cardio) RATE: regular rate RHYTHM: regular rhythm Back/Pelvis: OTHER: Tenderness over right hip and low back no obvious deformity Extremity: COMMON NORMALS: normal to inspection and full ROM Neuro: COMMON NORMALS: patient oriented x3, moves all extremities and no focal motor deficits Psych: COMMON NORMALS: mental status grossly normal, Normal thought process present and cooperative THOUGHT PROCESS: Normal thought process present Skin: COMMON NORMALS: no rashes or lesions noted and no wounds GENERAL SKIN EXAM: no rashes or lesions noted Course Vital Signs: Vital signs: Vital Signs Temperature 98.0 F 11/10/24 14:31 Pulse Rate 81 11/10/24 15:38 Respiratory Rate 16 11/10/24 15:38 Blood Pressure 117/71 11/10/24 15:38 Pulse Oximetry 96 11/10/24 15:38 Oxygen Delivery Me thod Room Air 11/10/24 15:38 MDM - Fall Medical Decision Making Patient presents here with coccyx fracture from a fall he is able to ambulate here without any difficulty he stable for discharge follow-up with PCP return if worsening. Medical Records I reviewed the patient's medical records. Lab Data Radiology Impressions Coccyx X-Ray 11/10/24 14:47 IMPRESSION: Questionable coccygeal fracture. Hip/Pelvis X-Ray 11/10/24 14:47 IMPRESSION: No acute findings. Lumbar Spine X-Ray 11/10/24 14:47 IMPRESSION: No acute findings. All radiology interpretation(s) finalized by discharge Discharge Plan Discharge Patient Disposition: Home Clinical Impression: Fall, Closed fracture of coccyx Condition: Stable Prescriptions: New hydrocodone-acetaminophen 5-325 mg tablet 1 tab PO Q6H PRN (Reason: pain) Qty: 14 0RF No Action ceftriaxone 1 gram Recon Soln 1 g IV DAILY quetiapine 200 mg Tablet 200 mg PO DAILY omeprazole 40 mg Capsule,Delayed Release(Dr/Ec) 40 mg PO DAILY meloxicam 7.5 mg Tablet 7.5 mg PO DAILY insulin aspart U-100 100 unit/mL (3 mL) Insulin Pen 38 unit SUBCUT TID rosuvastatin 10 mg Tablet 10 mg PO QPM insulin glargine 100 unit/mL (3 mL) Insulin Pen 67 unit SUBCUT DAILY Fish Oil 500 mg Capsule 500 mg PO BID Discharge Orders: Discharge ED (Routine); Ordered 11/10/24 Ordered By: Martha Quintero Referrals: Angelic Muir, [employer] SUPERVISOR [Primary Care Provider] - 4-7 days Discharge Diet: Advance as tolerated Discharge Activity: Resume usual activity Patient Instructions: Coccyx Injury (ED), Opioid Safety Coding Level of Care Code ED [employer] Manager for Chris Henry
--- NOTE | 2024-11-10 15:15 | PC.PHAR ---
PATIENT IS [facility]
[2024-11-10] MEDS: HYDROcodone-acetaminophen 5-325 mg Tablet 1 TAB PO (15:37)
[2024-11-10 15:38] VITALS: BP 117/71; PULSE 81; RESP 16; O2SAT 96
[2024-11-10 16:08] VITALS: BP 147/70; PULSE 72; O2SAT 98
[2024-11-10 16:09] VITALS: BP 147/70; PULSE 72; O2SAT 96
== END 2024-11-10 16:14 | disposition home or self-care (01) ==
PROVIDERS: Emergency Provider Emergency Medicine; PCP Nurse Practitioner Family
DX: S32.2XXA Fracture of coccyx, initial encounter for closed fracture (principal); W19.XXXA Unspecified fall, initial encounter; Z79.4 Long term (current) use of insulin
CPT/HCPCS: 72100; 72220; 73502; 99284

== ENCOUNTER → 2024-12-05 14:27 | Outpatient (BNVA) | payer OTHER, SELFPAY | PROVIDERS: PCP Nurse Practitioner Family; Visit Provider Thoracic Surgery (Cardiothoracic Vascular Surgery) | DX: E11.52 Type 2 diabetes mellitus with diabetic peripheral angiopathy with gangrene (principal); E11.622 Type 2 diabetes mellitus with other skin ulcer; L97.322 Non-pressure chronic ulcer of left ankle with fat layer exposed; Z09 Encounter for follow-up examination after completed treatment for conditions other than malignant neoplasm | CPT/HCPCS: 11042; A6021 ==

== ENCOUNTER → 2024-12-26 13:48 | Outpatient (BNVA) | payer OTHER, SELFPAY | PROVIDERS: PCP Nurse Practitioner Family; Visit Provider Thoracic Surgery (Cardiothoracic Vascular Surgery) | DX: E11.52 Type 2 diabetes mellitus with diabetic peripheral angiopathy with gangrene (principal); E11.621 Type 2 diabetes mellitus with foot ulcer; L97.322 Non-pressure chronic ulcer of left ankle with fat layer exposed | CPT/HCPCS: 11042; 87070; 87176; 87205; A6210 ==

== ENCOUNTER → 2025-01-10 14:21 | Outpatient (BNVA) | payer OTHER, SELFPAY | PROVIDERS: PCP Nurse Practitioner Family; Visit Provider Thoracic Surgery (Cardiothoracic Vascular Surgery) | DX: E11.52 Type 2 diabetes mellitus with diabetic peripheral angiopathy with gangrene (principal); E11.622 Type 2 diabetes mellitus with other skin ulcer; L97.312 Non-pressure chronic ulcer of right ankle with fat layer exposed | CPT/HCPCS: 11042; A6210 ==

== ENCOUNTER → 2025-01-24 14:37 | Outpatient (BNVA) | payer OTHER, SELFPAY | PROVIDERS: PCP Nurse Practitioner Family | DX: E11.52 Type 2 diabetes mellitus with diabetic peripheral angiopathy with gangrene (principal); E11.622 Type 2 diabetes mellitus with other skin ulcer; L97.322 Non-pressure chronic ulcer of left ankle with fat layer exposed | CPT/HCPCS: 97597; A6212 ==

== ENCOUNTER → 2025-02-14 15:02 | Outpatient (BNVA) | payer OTHER, SELFPAY | PROVIDERS: PCP Nurse Practitioner Family; Visit Provider Thoracic Surgery (Cardiothoracic Vascular Surgery) | DX: E11.52 Type 2 diabetes mellitus with diabetic peripheral angiopathy with gangrene (principal); E11.621 Type 2 diabetes mellitus with foot ulcer; L97.322 Non-pressure chronic ulcer of left ankle with fat layer exposed | CPT/HCPCS: 11042; A6212; A6252 ==

== ENCOUNTER → 2025-02-27 13:33 | Outpatient (BNVA) | payer OTHER, SELFPAY | PROVIDERS: PCP Nurse Practitioner Family; Visit Provider Thoracic Surgery (Cardiothoracic Vascular Surgery) | DX: E11.52 Type 2 diabetes mellitus with diabetic peripheral angiopathy with gangrene (principal); E11.622 Type 2 diabetes mellitus with other skin ulcer; L97.321 Non-pressure chronic ulcer of left ankle limited to breakdown of skin | CPT/HCPCS: 97597; A6212 ==

== ENCOUNTER → 2025-03-07 13:43 | Outpatient (BNVA) | payer OTHER, SELFPAY | PROVIDERS: PCP Nurse Practitioner Family; Visit Provider Thoracic Surgery (Cardiothoracic Vascular Surgery) | DX: E11.52 Type 2 diabetes mellitus with diabetic peripheral angiopathy with gangrene (principal); E11.622 Type 2 diabetes mellitus with other skin ulcer; L97.322 Non-pressure chronic ulcer of left ankle with fat layer exposed | CPT/HCPCS: 11042 ==

== ENCOUNTER → 2025-03-14 13:49 | Outpatient (BNVA) | payer OTHER, SELFPAY | PROVIDERS: PCP Nurse Practitioner Family; Visit Provider Thoracic Surgery (Cardiothoracic Vascular Surgery) | DX: E11.52 Type 2 diabetes mellitus with diabetic peripheral angiopathy with gangrene (principal); E11.622 Type 2 diabetes mellitus with other skin ulcer; L97.322 Non-pressure chronic ulcer of left ankle with fat layer exposed | CPT/HCPCS: 11042; A6197; A6212 ==

== ENCOUNTER → 2025-03-21 15:02 | Outpatient (BNVA) | payer OTHER, SELFPAY | PROVIDERS: PCP Nurse Practitioner Family | DX: E11.52 Type 2 diabetes mellitus with diabetic peripheral angiopathy with gangrene (principal); E11.622 Type 2 diabetes mellitus with other skin ulcer; L97.321 Non-pressure chronic ulcer of left ankle limited to breakdown of skin | CPT/HCPCS: 97597; A6197; A6212 ==

== ENCOUNTER → 2025-04-05 12:55 | Outpatient (BNVA) | payer OTHER, SELFPAY | PROVIDERS: PCP Nurse Practitioner Family | DX: E11.52 Type 2 diabetes mellitus with diabetic peripheral angiopathy with gangrene (principal); E11.621 Type 2 diabetes mellitus with foot ulcer; L97.322 Non-pressure chronic ulcer of left ankle with fat layer exposed | CPT/HCPCS: 11042 ==

== ENCOUNTER → 2025-04-11 14:11 | Outpatient (BNVA) | payer OTHER, SELFPAY | PROVIDERS: PCP Nurse Practitioner Family; Visit Provider Podiatrist Foot & Ankle Surgery | DX: E11.42 Type 2 diabetes mellitus with diabetic polyneuropathy (principal); B35.1 Tinea unguium; L84 Corns and callosities; E11.621 Type 2 diabetes mellitus with foot ulcer; L97.502 Non-pressure chronic ulcer of other part of unspecified foot with fat layer exposed; G62.9 Polyneuropathy, unspecified; M20.41 Other hammer toe(s) (acquired), right foot; M20.42 Other hammer toe(s) (acquired), left foot; L97.512 Non-pressure chronic ulcer of other part of right foot with fat layer exposed; Z79.4 Long term (current) use of insulin | CPT/HCPCS: 11055; 11721; 99213 ==

== ENCOUNTER → 2025-04-12 12:51 | Outpatient (BNVA) | payer OTHER, SELFPAY | PROVIDERS: PCP Nurse Practitioner Family; Visit Provider Thoracic Surgery (Cardiothoracic Vascular Surgery) | DX: E11.52 Type 2 diabetes mellitus with diabetic peripheral angiopathy with gangrene (principal); E11.622 Type 2 diabetes mellitus with other skin ulcer; L97.321 Non-pressure chronic ulcer of left ankle limited to breakdown of skin; E11.621 Type 2 diabetes mellitus with foot ulcer; L97.511 Non-pressure chronic ulcer of other part of right foot limited to breakdown of skin | CPT/HCPCS: 97597 ==

== ENCOUNTER → 2025-04-30 13:58 | Outpatient (BNVA) | payer OTHER, SELFPAY | PROVIDERS: PCP Nurse Practitioner Family; Visit Provider Thoracic Surgery (Cardiothoracic Vascular Surgery) | DX: E11.52 Type 2 diabetes mellitus with diabetic peripheral angiopathy with gangrene (principal); E11.621 Type 2 diabetes mellitus with foot ulcer; L97.421 Non-pressure chronic ulcer of left heel and midfoot limited to breakdown of skin; L97.511 Non-pressure chronic ulcer of other part of right foot limited to breakdown of skin; E11.622 Type 2 diabetes mellitus with other skin ulcer; L97.321 Non-pressure chronic ulcer of left ankle limited to breakdown of skin | CPT/HCPCS: 11042; 87070; 87176; 87205; 97597 ==

== ENCOUNTER → 2025-05-07 14:22 | Outpatient (BNVA) | payer OTHER, SELFPAY | PROVIDERS: PCP Nurse Practitioner Family; Visit Provider Thoracic Surgery (Cardiothoracic Vascular Surgery) | DX: E11.52 Type 2 diabetes mellitus with diabetic peripheral angiopathy with gangrene (principal); E11.622 Type 2 diabetes mellitus with other skin ulcer; L97.321 Non-pressure chronic ulcer of left ankle limited to breakdown of skin; Z09 Encounter for follow-up examination after completed treatment for conditions other than malignant neoplasm | CPT/HCPCS: 97597; A6197 ==

== ENCOUNTER → 2025-05-15 14:57 | Outpatient (BNVA) | payer OTHER, SELFPAY | PROVIDERS: PCP Nurse Practitioner Family; Visit Provider Thoracic Surgery (Cardiothoracic Vascular Surgery) | DX: E11.52 Type 2 diabetes mellitus with diabetic peripheral angiopathy with gangrene (principal); E11.622 Type 2 diabetes mellitus with other skin ulcer; L97.321 Non-pressure chronic ulcer of left ankle limited to breakdown of skin | CPT/HCPCS: 15275; A6206 ==

== ENCOUNTER → 2025-05-22 14:09 | Outpatient (BNVA) | payer OTHER, SELFPAY | PROVIDERS: PCP Nurse Practitioner Family; Visit Provider Thoracic Surgery (Cardiothoracic Vascular Surgery) | DX: E11.52 Type 2 diabetes mellitus with diabetic peripheral angiopathy with gangrene (principal); E11.621 Type 2 diabetes mellitus with foot ulcer; L97.321 Non-pressure chronic ulcer of left ankle limited to breakdown of skin | CPT/HCPCS: 15275; A6250 ==

== ENCOUNTER → 2025-06-05 14:55 | Outpatient (BNVA) | payer OTHER, SELFPAY | PROVIDERS: PCP Nurse Practitioner Family; Visit Provider Thoracic Surgery (Cardiothoracic Vascular Surgery) | DX: E11.52 Type 2 diabetes mellitus with diabetic peripheral angiopathy with gangrene (principal); E11.622 Type 2 diabetes mellitus with other skin ulcer; L97.322 Non-pressure chronic ulcer of left ankle with fat layer exposed | CPT/HCPCS: 15275; 87070; 87176; 87205 ==

== ENCOUNTER 2025-06-12 16:07 | Outpatient (CLI) | payer OTHER, SELFPAY ==
--- NOTE | 2025-06-12 16:13 | XRR_ITS ---
PROCEDURE INFORMATION: Exam: XR Left Ankle Exam date and time: 06/12/2025 4:22 PM Age: 74 years old Clinical indication: Condition or disease; Other: Wound; Lt ankle non healing ulcer lateral side; Additional info: Worsening wound to lat ankle TECHNIQUE: Imaging protocol: Radiologic exam of the left ankle. Views: 3 or more views. COMPARISON: MR ankle LT wo/w con [id number] 09/14/2024 3:14 PM FINDINGS: Bones/joints: No acute fracture or dislocation. Mild cortical irregularity along the lateral aspect of the distal fibula. Soft tissues: Soft tissue swelling and ulceration along the lateral aspect of the ankle adjacent to the lateral malleolus. XR/XR ankle LT min 3V* [id number] IMPRESSION: 1. No acute osseous findings. 2. Lateral soft tissue swelling/ulceration. Mild cortical irregularity along the subjacent aspect of the distal fibula could be related to osteomyelitis.
[2025-06-12 18:04] LABS: Hematocrit 40.3 % (37-53); Hemoglobin 14.00 g/dL (11.27-16.99); Mean Corpuscular HGB Conc 34.7 g/dL (30-55); Mean Corpuscular Hemoglobin 30.6 pg (27-33); Mean Corpuscular Volume 88.2 fl (82-101); Nucleated Red Blood Cells % 0 %; Platelet Count 272 10^3/cmm (157-399); Red Blood Count 4.57 10^6/uL (3.85-5.65); White Blood Count 12.29 10^3/uL (3.29-11.43)
[2025-06-12 18:24] LABS: Alanine Aminotransferase 19 U/L (0-41); Albumin Level 4.1 g/dL (3.5-5.2); Alkaline Phosphatase 83 U/L (40-130); Anion Gap 14.6 (5-19); Aspartate Amino Transferase 16 U/L (0-40); Blood Urea Nitrogen 18 mg/dL (8-23); Calcium 9.3 mg/dL (8.5-10.5); Carbon Dioxide 24 mmol/L (22-29); Chloride 100 mmol/L (98-107); Globulin 3.0 g/dL (1.3-4.6); Glucose 317 mg/dL (65-115); Osmolality Calculated 292 mOsm/kg (285-295); Potassium 4.6 mmol/L (3.5-5.1); Sodium 134 mmol/L (136-145); Total Protein 7.1 g/dL (6.6-8.7)
== END 2025-06-12 16:08 | disposition home or self-care (01) ==
LOC: RAD 16:09
PROVIDERS: PCP Nurse Practitioner Family; Visit Provider Thoracic Surgery (Cardiothoracic Vascular Surgery)
DX: G62.9 Polyneuropathy, unspecified (principal); L97.502 Non-pressure chronic ulcer of other part of unspecified foot with fat layer exposed; E08.621 Diabetes mellitus due to underlying condition with foot ulcer; L97.509 Non-pressure chronic ulcer of other part of unspecified foot with unspecified severity; M79.89 Other specified soft tissue disorders; R93.6 Abnormal findings on diagnostic imaging of limbs
CPT/HCPCS: 36415; 73610; 80053; 85025; 85651; 86140; 97597

== ENCOUNTER → 2025-07-02 13:14 | Outpatient (BNVA) | payer OTHER, SELFPAY | PROVIDERS: PCP Nurse Practitioner Family; Visit Provider Thoracic Surgery (Cardiothoracic Vascular Surgery) | DX: E11.52 Type 2 diabetes mellitus with diabetic peripheral angiopathy with gangrene (principal); E11.622 Type 2 diabetes mellitus with other skin ulcer; L97.321 Non-pressure chronic ulcer of left ankle limited to breakdown of skin | CPT/HCPCS: 97597; A6212 ==

== ENCOUNTER → 2025-07-23 13:38 | Outpatient (BNVA) | payer OTHER, SELFPAY | PROVIDERS: PCP Nurse Practitioner Family; Visit Provider Thoracic Surgery (Cardiothoracic Vascular Surgery) | DX: E11.52 Type 2 diabetes mellitus with diabetic peripheral angiopathy with gangrene (principal); E11.622 Type 2 diabetes mellitus with other skin ulcer; L97.322 Non-pressure chronic ulcer of left ankle with fat layer exposed | CPT/HCPCS: 11042; 87070; 87176; 87205 ==

== ENCOUNTER 2025-07-30 13:56 | Outpatient (CLI) | payer OTHER, SELFPAY ==
[2025-07-30 15:04] LABS: Hematocrit 38.8 % (37-53); Hemoglobin 13.40 g/dL (11.27-16.99); Mean Corpuscular HGB Conc 34.5 g/dL (30-55); Mean Corpuscular Hemoglobin 30.6 pg (27-33); Mean Corpuscular Volume 88.6 fl (82-101); Nucleated Red Blood Cells % 0 %; Platelet Count 273 10^3/cmm (157-399); Red Blood Count 4.38 10^6/uL (3.85-5.65); White Blood Count 7.64 10^3/uL (3.29-11.43)
[2025-07-30 15:20] LABS: Estmated Average Glucose 329; Hemoglobin A1C 13.1 % (4.0-6.0)
[2025-07-30 15:29] LABS: Alanine Aminotransferase 17 U/L (0-41); Albumin Level 3.9 g/dL (3.5-5.2); Alkaline Phosphatase 85 U/L (40-130); Anion Gap 13.4 (5-19); Aspartate Amino Transferase 13 U/L (0-40); Blood Urea Nitrogen 9 mg/dL (8-23); Calcium 9.2 mg/dL (8.5-10.5); Carbon Dioxide 26 mmol/L (22-29); Chloride 93 mmol/L (98-107); Globulin 2.9 g/dL (1.3-4.6); Glucose 490 mg/dL (65-115); Osmolality Calculated 286 mOsm/kg (285-295); Potassium 4.4 mmol/L (3.5-5.1); Sodium 128 mmol/L (136-145); Total Protein 6.8 g/dL (6.6-8.7)
== END 2025-07-30 13:57 | disposition home or self-care (01) ==
LOC: LAB 13:58
PROVIDERS: PCP Nurse Practitioner Family; Visit Provider Thoracic Surgery (Cardiothoracic Vascular Surgery)
DX: E11.622 Type 2 diabetes mellitus with other skin ulcer (principal); L98.499 Non-pressure chronic ulcer of skin of other sites with unspecified severity
CPT/HCPCS: 36415; 80053; 83036; 85025; 85651; 86140

== ENCOUNTER → 2025-08-01 14:55 | Outpatient (BNVA) | payer OTHER, SELFPAY | PROVIDERS: PCP Nurse Practitioner Family; Visit Provider Thoracic Surgery (Cardiothoracic Vascular Surgery) | DX: E11.52 Type 2 diabetes mellitus with diabetic peripheral angiopathy with gangrene (principal); E11.622 Type 2 diabetes mellitus with other skin ulcer; L97.321 Non-pressure chronic ulcer of left ankle limited to breakdown of skin | CPT/HCPCS: 97597; A6212 ==

== ENCOUNTER 2025-08-14 13:15 | Outpatient (CLI) | payer OTHER, SELFPAY ==
--- NOTE | 2025-08-14 14:30 | MR_ITS ---
WS: [id number] MRI LEFT ANKLE WITH AND WITHOUT CONTRAST. COMPARISON: 09/14/2024 , radiograph 06/12/2025 Multiplanar, multisequence imaging is performed with and without contrast. Sagittal and axial T1 fat sat sequences post-MultiHance 20 cc IV. Persistent but partially healed ulcer tract lateral to the distal fibula. Tract extends to the distal fibular tip. There is mild enhancement along the tract but no fluid collection or abscess. Mild persistent enhancement in the fibula and marrow edema. Previously described soft tissue ultrasound along the medial hindfoot is no longer present. There is a new soft tissue tract with peripheral enhancement along the plantar surface of the foot inferior to the cuboid. Ulcer tract enhances and extends to the cuboid and also contacts the peroneus longus tendon as it courses posterior to the cuboid. There is mild enhancement within the peroneal longus tendon sheath. No definite bony enhancement. The enhancement is very closely associated with the proximal fifth metatarsal. Ulceration measures 2.0 x 1.0 cm and there does appear to be a focal abscess in the subcutaneous portion of the tract. Increased fluid within the peroneal tendon sheath. There is a focal partial split tear in the peroneus longus. MR/MR ankle LT wo/w con [id number] IMPRESSION: 1. New soft tissue ulceration along the plantar surface of the foot at the lev el of the cuboid. Tract extends to the cuboid and involves the peroneus longus tendon sheath and probably the base of the fifth metatarsal. Questionable osteo myelitis involving the cortex of the fifth metatarsal. 2. Small soft tissue abscess in the ulcerated tract along the plantar surface of the foot. 3. Partially healed ulcer tract lateral to the distal fibula. There is persist ent but improved marrow edema and osteomyelitis in the fibula. 4. Previously described very superficial soft tissue ulcer along the medial hi ndfoot is no longer present. 5. Tenosynovitis in the peroneal tendons and sheath. There is increased fluid. Split tear in the peroneus longus.
[2025-08-14] MEDS: gadobenate dimeglumine 20 mL vial IV (14:58)
== END 2025-08-14 13:16 | disposition home or self-care (01) ==
LOC: RAD 13:16
PROVIDERS: PCP Nurse Practitioner Family; Visit Provider Thoracic Surgery (Cardiothoracic Vascular Surgery)
DX: E11.622 Type 2 diabetes mellitus with other skin ulcer (principal); L98.499 Non-pressure chronic ulcer of skin of other sites with unspecified severity; M65.872 Other synovitis and tenosynovitis, left ankle and foot
CPT/HCPCS: 73723

== ENCOUNTER → 2025-09-13 13:40 | Outpatient (BNVA) | payer OTHER, SELFPAY | PROVIDERS: PCP Nurse Practitioner Family; Visit Provider Thoracic Surgery (Cardiothoracic Vascular Surgery) | DX: E11.52 Type 2 diabetes mellitus with diabetic peripheral angiopathy with gangrene (principal); E11.622 Type 2 diabetes mellitus with other skin ulcer; L97.311 Non-pressure chronic ulcer of right ankle limited to breakdown of skin | CPT/HCPCS: 97597; A6219 ==

== ENCOUNTER → 2025-09-20 14:53 | Outpatient (BNVA) | payer OTHER, SELFPAY | PROVIDERS: PCP Nurse Practitioner Family; Visit Provider Thoracic Surgery (Cardiothoracic Vascular Surgery) | DX: E11.52 Type 2 diabetes mellitus with diabetic peripheral angiopathy with gangrene (principal); E11.622 Type 2 diabetes mellitus with other skin ulcer; L97.321 Non-pressure chronic ulcer of left ankle limited to breakdown of skin | CPT/HCPCS: 97597; A6212 ==

== ENCOUNTER → 2025-09-24 13:00 | Outpatient (BNVA) | payer OTHER, SELFPAY | PROVIDERS: PCP Nurse Practitioner Family; Visit Provider Podiatrist Foot & Ankle Surgery | DX: E11.42 Type 2 diabetes mellitus with diabetic polyneuropathy (principal); B35.1 Tinea unguium; E11.621 Type 2 diabetes mellitus with foot ulcer; G62.9 Polyneuropathy, unspecified; L84 Corns and callosities; M20.41 Other hammer toe(s) (acquired), right foot; M20.42 Other hammer toe(s) (acquired), left foot; L97.522 Non-pressure chronic ulcer of other part of left foot with fat layer exposed; Z79.4 Long term (current) use of insulin | CPT/HCPCS: 11721; 99214 ==

== ENCOUNTER 2025-10-04 18:04 | Emergency (ER) | payer OTHER, SELFPAY ==
[2025-10-04 18:16] VITALS: BP 147/75; PULSE 82; RESP 18; TEMP 36.6; O2SAT 95
--- NOTE | 2025-10-04 18:42 | CTR_ITS ---
PROCEDURE INFORMATION: Exam: CT Abdomen And Pelvis Without Contrast Exam date and time: 10/04/2025 6:47 PM Age: 75 years old Clinical indication: Abdominal pain; Right; Prior surgery; Surgery date: 6+ months; Surgery type: Gb. Ivc filter; RT flank pain with dysuria; Additional info: R flank pain TECHNIQUE: Imaging protocol: Computed tomography of the abdomen and pelvis without contrast. Radiation optimization: All CT scans at this facility use at least one of these dose optimization techniques: automated exposure control; mA and/or kV adjustment per patient size (includes targeted exams where dose is matched to clinical indication); or iterative reconstruction. COMPARISON: CR XR hip RT 2-3V wo/w pel* [id number] 11/10/2024 3:05 PM RADIATION DOSE METRICS: Total DLP (mGy-cm): 853.21 FINDINGS: Lungs: The visualized lung pacheco show mild bibasilar atelectasis. Liver: Normal size and homogeneous density. No liver mass is seen. Gallbladder and biliary ducts: There has been a cholecystectomy. There is no evidence of biliary ductal dilation. Pancreas: Normal size and homogeneous density. No ductal dilation. Spleen: Normal. No splenomegaly. Adrenal glands: Normal. No mass. Kidneys and ureters: In the kidney, there is renal hilar vascular calcification. No calcified renal or ureteral calculi. In the right kidney, there is a 4 mm nonobstructive calculus versus vascular calcification. No ureteral calculus is identified. There are bilateral nonspecific perirenal inflammatory changes. Stomach and bowel: No evidence of small bowel colonic obstruction. Moderate fecal burden throughout the colon suggestive of constipation. Appendix: No evidence of appendicitis. Intraperitoneal space: No free air. No significant fluid collection. Vasculature: There is an inferior vena cava filter in appropriate position. Lymph nodes: No enlarged retroperitoneal or mesenteric lymph nodes. Urinary bladder: The bladder is moderately distended and shows mild wall thickening. Reproductive: The prostate measures 5.4 cm in transverse dimension. Bones/joints: No acute fracture. Prominent anterior osteophytes at T12-L1. Soft tissues: There are small bilateral nonobstructing inguinal hernias containing adipose tissue. CT/CT kidney stone [id number] IMPRESSION: 1. No evidence of right renal or ureteral calculi. No bladder calculi. 2. A 4 mm calculus versus vascular calcification in the left kidney. 3. Bladder wall thickening suggesting cystitis, incomplete distention or chronic outflow obstruction. 4. Moderate fecal burden throughout the colon suggestive of constipation. 5. 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 COMMENTS: For patients with an IVC filter, recommend assessment for a management plan for the patient's IVC filter. If there is no established management plan, recommend referral to an interventional clinician on a nonemergent basis for evaluation.
--- NOTE | 2025-10-04 18:54 | PC.NURSE ---
Pt. reports bite on right foot. pedal pulses present, red abscess. This RN at bedside with provider who lacerated abscess, bandage added.
--- NOTE | 2025-10-04 19:05 | W.ED.MALEGU ---
HPI - Male Genitourinary General: Chief complaint: Urogenital-Male Stated complaint: ill shakes bite on right foot. pain with urine Time Seen by Provider: 10/04/25 18:24 History of Present Illness: This 75-year-old male presents with a several-day history of dysuria and urinary retention. Patient reports burning sensation with urination and describes feeling plugged up with difficulty initiating urinary stream. He experiences significant pain when attempting to void, rating the pain as 9/10 on a pain scale. The pain is primarily located on the right side and radiates to his back in the right flank region. Patient has a history of gallstones requiring surgical intervention. Last Wednesday, he experienced rigors and shaking, followed by worsening of his urinary symptoms. He denies hematuria, fever (though reports feeling hot and experiencing shaking episodes), nausea, vomiting, or diarrhea. Initially, he was able to pass small amounts of urine with concurrent bowel movements, but now reports inability to void. Patient also presents with a right foot lesion that appeared a couple of days ago, initially thought to be an insect bite, which developed into what appeared to be a blister or boil. The lesion was treated with topical antibiotics and bandaging at home. Related Data Home Medications ?Medication ?Instructions ?Recorded ?Confirmed ceftriaxone 1 gram intravenous 1 g IV DAILY 10/12/24 09/24/25 solution insulin aspart U-100 100 unit/mL 38 unit SUBCUT TID 11/10/24 09/24/25 (3 mL) subcutaneous pen insulin glargine 100 unit/mL (3 67 unit SUBCUT DAILY 11/10/24 09/24/25 mL) subcutaneous pen meloxicam 7.5 mg tablet 7.5 mg PO DAILY 11/10/24 09/24/25 omega-3 fatty acids 500 mg capsule 500 mg PO BID 11/10/24 09/24/25 omeprazole 40 mg capsule,delayed 40 mg PO DAILY 11/10/24 09/24/25 release quetiapine 200 mg tablet 200 mg PO DAILY 11/10/24 09/24/25 rosuvastatin 10 mg tablet 10 mg PO QPM 11/10/24 09/24/25 Previous Rx's ?Medication ?Instructions ?Recorded sulfamethoxazole 800 1 tab PO BID #14 tabs 07/02/25 mg-trimethoprim 160 mg tablet (Bactrim DS) cefdinir 300 mg capsule 300 mg PO BID 10 days #20 caps 10/04/25 hydrocodone 5 mg-acetaminophen 325 1 tab PO Q6H PRN pain #7 tabs 10/04/25 mg tablet tamsulosin 0.4 mg capsule 0.4 mg PO DAILY #30 caps 10/04/25 Allergies Allergy/AdvReac Type Severity Reaction Status Date / Time No Known Allergies Allergy Verified 10/04/25 18:22 PFSH ED PFSH: Medical History (Updated 10/04/25 @ 21:51 by Nehemias Arzola DO) No pertinent past medical history Surgical History No pertinent past surgical history Social History Smoking and tobacco/nicotine status: unknown if used tobacco/nicotine Physical Exam Const: COMMON NORMALS: no acute distress GENERAL APPEARANCE: cooperative; not ill appearing and not frail appearing HENMT: COMMON NORMALS: normocephalic, atraumatic and Normal external nose present HEAD & SCALP: normocephalic and atraumatic FACE & SINUS: normal facial exam and face symmetric NOSE: Normal external nose present Eye: COMMON NORMALS: Equal, round and reactive pupils present and EOMs intact bilaterally PUPIL: Yes Equal, round and reactive pupils present Neck/C-Spine: GENERAL: Yes trachea midline Chest: CHEST: Yes Symmetrical chest wall rise Resp: COMMON NORMALS: normal respiratory effort, No retractions, No use of accessory muscles and clear to auscultation bilaterally AUSCULTATION: clear to auscultation bilaterally Cardio: COMMON NORMALS: regular rate and regular rhythm RATE: regular rate RHYTHM: regular rhythm GI: COMMON NORMALS: Normal to inspection, nondistended, normoactive bowel sounds present PALPATION: No Tenderness to palpation present (GI) : BLADDER/KIDNEY EXAM: Yes CVA tenderness on the right Back/Pelvis: GENERAL BACK: Yes CVA tenderness Extremity: NARRATIVE EXTREMITY EXAM: Examination of the right foot reveals a boil present on the dorsum of the foot. There are some discoloration with erythema. No warmth. No streaking. Size is 2 cm. There is a chronic plantar wound covered with a wound dressing. Neuro: DON COMA SCALE: document GCS findings [place] coma scale eye opening: Spontaneous Don coma scale verbal response: Orientated Don coma scale motor response: Obey commands Don coma scale total score: 15 SENSORY EXAM: Yes extremities (intact) Psych: COMMON NORMALS: speech normal SPEECH: Yes normal speech Skin: COMMON NORMALS: no rashes or lesions noted GENERAL SKIN EXAM: no rashes or lesions noted Procedures Abscess I/D Site: foot Side (if applicable): right Sedation/analgesia: none Local Anesthetic: other anesthetic (None) Technique: needle aspiration Amount of fluid expressed (mL): 4 Irrigation: No Packing used?: none Complications: other (None) Course Vital Signs: Vital signs: Vital Signs Temperature 97.9 F 10/04/25 18:16 Pulse Rate 51 L 10/04/25 22:08 Respiratory Rate 16 10/04/25 19:07 Blood Pressure 136/82 10/04/25 22:08 Pulse Oximetry 91 10/04/25 22:08 Oxygen Delivery Me thod Room Air 10/04/25 21:05 MDM - Male Medical Decision Making Small abscess in the dorsum of the right foot is incised and drained using an 18-gauge needle. It is bandaged. In terms of the flank discomfort. Results white blood cell count is 11. Hemoglobin is 11. Blood sugar is 302. Labs otherwise not terribly remarkable. Lactic acid is 2.0. CRP is mildly elevated at 77. He received Rocephin for urinalysis showing greater than 100 whites, 2+ leukocyte esterase, and minimal blood. CT shows no evidence of right renal obstruction or calculus there is some constipation. Bladder wall thickening suggest cystitis. He will go home on antibiotics. Hydrocodone for pain control. He was encouraged to relieve constipation with [id number] stool softeners/laxatives will prescribe him some Flomax to help the frequency issue Lab Data 10/04/25 19:07 10/04/25 19:07 Radiology Impressions Abdomen/Pelvis CT 10/04/25 18:42 IMPRESSION: 1. No evidence of right renal or ureteral calculi. No bladder calculi. 2. A 4 mm calculus versus vascular calcification in the left kidney. 3. Bladder wall thickening suggesting cystitis, incomplete distention or chronic outflow obstruction. 4. Moderate fecal burden throughout the colon suggestive of constipation. 5. 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 COMMENTS: For patients with an IVC filter, recommend assessment for a management plan for the patient's IVC filter. If there is no established management plan, recommend referral to an interventional clinician on a nonemergent basis for evaluation. Laboratory Results WBC 10.99 10^3/uL (3.29-11.43) 10/04/25 19:07 RBC 3.60 10^6/uL (3.85-5.65) L 10/04/25 19:07 Hgb 10.70 g/dL (11.27-16.99) L 10/04/25 19:07 Hct 31.8 % (37-53) L 10/04/25 19:07 MCV 88.3 fl (82-101) 10/04/25 19:07 MCH 29.7 pg (27-33) 10/04/25 19:07 MCHC 33.6 g/dL (30-55) 10/04/25 19:07 RDW 12.4 % (12.1-15.1) 10/04/25 19:07 Plt Count 402 10^3/cmm (157-399) H 10/04/25 19:07 MPV 9.2 fL (7.4-10.4) 10/04/25 19:07 Neut % (Auto) 69.5 % 10/04/25 19:07 Lymph % (Auto) 15.7 % 10/04/25 19:07 [place] % (Auto) 7.3 % 10/04/25 19:07 Eos % (Auto) 2.5 % 10/04/25 19:07 Baso % (Auto) 0.7 % 10/04/25 19:07 Neut # (Auto) 7.64 10^3/uL (1.8-7.7) 10/04/25 19:07 Lymph # (Auto) 1.7 10^3/uL (0.8-4.8) 10/04/25 19:07 [place] # (Auto) 0.8 10^3/uL (0.2-0.9) 10/04/25 19:07 Eos # (Auto) 0.3 10^3/uL (0.0-0.8) 10/04/25 19:07 Baso # (Auto) 0.1 10^3/uL (0.0-0.1) 10/04/25 19:07 Nucleated RBC % (auto) 0 % 10/04/25 19:07 Nucleated RBCs # 0.0 /100WBC 10/04/25 19:07 Sodium 134 mmol/L (136-145) L 10/04/25 19:07 Potassium 3.6 mmol/L (3.5-5.1) 10/04/25 19:07 Chloride 100 mmol/L (98-107) 10/04/25 19:07 Carbon Dioxide 23 mmol/L (22-29) 10/04/25 19:07 Anion Gap 14.6 (5-19) 10/04/25 19:07 BUN 9 mg/dL (8-23) 10/04/25 19:07 Creatinine 0.9 mg/dL (0.7-1.2) 10/04/25 19:07 GFR Calculation Not Reportable 10/04/25 19:07 Glucose 302 mg/dL (65-115) H 10/04/25 19:07 Calculated Osmolality 288 mOsm/kg (285-295) 10/04/25 19:07 Lactic Acid 2.0 mmol/L (0.5-2.2) 10/04/25 19:07 Calcium 8.5 mg/dL (8.5-10.5) 10/04/25 19:07 Total Bilirubin 0.2 mg/dL (0.15-1.2) 10/04/25 19:07 AST 17 U/L (0-40) 10/04/25 19:07 ALT 16 U/L (0-41) 10/04/25 19:07 Alkaline Phosphatase 80 U/L (40-130) 10/04/25 19:07 C-Reactive Protein 77.2 mg/L (0.0-4.9) H 10/04/25 19:07 Total Protein 5.9 g/dL (6.6-8.7) L 10/04/25 19:07 Albumin 2.6 g/dL (3.5-5.2) L 10/04/25 19:07 Globulin 3.3 g/dL (1.3-4.6) 10/04/25 19:07 Urine Color Yellow (Yellow) 10/04/25 19:26 Urine Appearance Clear (CLEAR) 10/04/25 19:26 Urine pH 6.5 (5-7) 10/04/25 19:26 Ur Specific [place] 1.021 (1.005-1.030) 10/04/25 19: Urine Protein 1+ (Negative) A 10/04/25 19: Urine Glucose (UA) 3+ (Normal) H 10/04/25 19: Urine Ketones Negative (Negative) 10/04/25 19: Urine Blood 1+ (Negative) A 10/04/25 19: Urine Nitrate Positive (Negative) A 10/04/25 19: Urine Bilirubin Negative (Negative) 10/04/25 19: Urine Urobilinogen 1.0 mg/dL (Negative) 10/04/25 19: Ur Leukocyte Esterase 2+ (Negative) A 10/04/25 19: Urine RBC 3-5 /hpf (0-2) 10/04/25 19: Urine WBC >100 /hpf (0-5) H 10/04/25 19: Ur Squamous Epith Cells 0-5 /hpf (0-5) 10/04/25 19: Amorphous Sediment Not Reportable 10/04/25 19: Urine Bacteria None seen /hpf (NONE) 10/04/25 19: Hyaline Casts 0.81 /lpf 10/04/25 19:26 All radiology interpretation(s) finalized by discharge Discharge Plan Discharge Patient Disposition: Home Clinical Impression: Urinary tract infection Qualifiers: Urinary tract infection type: acute cystitis Hematuria presence: with hematuria Qualified Code(s): N30.01 - Acute cystitis with hematuria Condition: Stable Prescriptions: New cefdinir 300 mg capsule 300 mg PO BID 10 Days Qty: 20 0RF tamsulosin 0.4 mg capsule 0.4 mg PO DAILY Qty: 30 0RF Rx Instructions: For urinary outlet obstruction Continued hydrocodone-acetaminophen 5-325 mg tablet 1 tab PO Q6H PRN (Reason: pain) Qty: 7 0RF No Action sulfamethoxazole-trimethoprim [Bactrim DS] 800-160 mg tablet 1 tab PO BID Qty: 14 0RF ceftriaxone 1 gram Recon Soln 1 g IV DAILY quetiapine 200 mg Tablet 200 mg PO DAILY omeprazole 40 mg Capsule,Delayed Release(Dr/Ec) 40 mg PO DAILY meloxicam 7.5 mg Tablet 7.5 mg PO DAILY insulin aspart U-100 100 unit/mL (3 mL) Insulin Pen 38 unit SUBCUT TID rosuvastatin 10 mg Tablet 10 mg PO QPM insulin glargine 100 unit/mL (3 mL) Insulin Pen 67 unit SUBCUT DAILY Fish Oil 500 mg Capsule 500 mg PO BID Discharge Orders: Discharge ED (Routine); Ordered 10/04/25 Ordered By: Nehemias Arzola Referrals: Angelic Muir APRN [Primary Care Provider, [facility]] - 4-7 days Patient Instructions: Urinary Tract Infection in Men (ED), Opioid Safety, Pain Management, Patient Portal & Valentine Instructions Activity Restrictions/Additional Instructions: Antibiotics as directed. You may use pain medication as needed. Return for fever despite 2-3 doses of antibiotics, worsening pain despite treatment vomiting liquids or medications, other concerning symptoms. Call your doctor tomorrow for a follow-up appointment. Print Language: Afghan Coding Level of Care Code ED Historiography Professor for Chris Henry
[2025-10-04 19:07] VITALS: RESP 16
[2025-10-04] MEDS: ondansetron 2 mg/ML SDV 2 mL 4 MG IVP (19:07)
[2025-10-04] MEDS: morphine 4 mg/mL SDV 1 mL IVP (19:07)
[2025-10-04 19:23] VITALS: BP 140/86; PULSE 61; O2SAT 99
[2025-10-04 19:25] LABS: Hematocrit 31.8 % (37-53); Hemoglobin 10.70 g/dL (11.27-16.99); Mean Corpuscular HGB Conc 33.6 g/dL (30-55); Mean Corpuscular Hemoglobin 29.7 pg (27-33); Mean Corpuscular Volume 88.3 fl (82-101); Nucleated Red Blood Cells % 0 %; Platelet Count 402 10^3/cmm (157-399); Red Blood Count 3.60 10^6/uL (3.85-5.65); White Blood Count 10.99 10^3/uL (3.29-11.43)
[2025-10-04 19:32] LABS: Glucose Urine UA 3+ (Normal); Nitrate Urine Positive (Negative); Specific Gravity, Urine 1.021 (1.005-1.030)
[2025-10-04 19:36] LABS: Add Urine Microscopic? YES
[2025-10-04 19:38] LABS: Alanine Aminotransferase 16 U/L (0-41); Albumin Level 2.6 g/dL (3.5-5.2); Alkaline Phosphatase 80 U/L (40-130); Anion Gap 14.6 (5-19); Aspartate Amino Transferase 17 U/L (0-40); Blood Urea Nitrogen 9 mg/dL (8-23); Calcium 8.5 mg/dL (8.5-10.5); Carbon Dioxide 23 mmol/L (22-29); Chloride 100 mmol/L (98-107); Globulin 3.3 g/dL (1.3-4.6); Glucose 302 mg/dL (65-115); Lactic Sepsis W/Reflex 2.0 mmol/L (0.5-2.2); Osmolality Calculated 288 mOsm/kg (285-295); Potassium 3.6 mmol/L (3.5-5.1); Sodium 134 mmol/L (136-145); Total Protein 5.9 g/dL (6.6-8.7)
[2025-10-04 20:04] VITALS: BP 139/71; PULSE 62; O2SAT 98
[2025-10-04] MEDS: cefTRIAXone 1,000 mg SDV 1000 MG IVP (21:01)
[2025-10-04 21:05] VITALS: BP 142/74; PULSE 59; O2SAT 96
[2025-10-04 22:08] VITALS: BP 136/82; PULSE 51; O2SAT 91
== END 2025-10-04 22:09 | disposition home or self-care (01) ==
PROVIDERS: Emergency Provider Emergency Medicine; PCP Nurse Practitioner Family
DX: N30.01 Acute cystitis with hematuria (principal); L02.611 Cutaneous abscess of right foot; Z79.4 Long term (current) use of insulin
CPT/HCPCS: 10060; 74176; 80053; 81001; 83605; 85025; 86140; 87077; 87086; 87186; 96374; 96375; 99285; J0696; J2270; J2405